=== PATIENT | male | born 1980 | race Asian ===

== ENCOUNTER 2021-03-24 02:26 | Emergency (ER) | payer BC, OTHER ==
[~2021-03-24] VITALS: Ht 185.4 cm; Wt 90.7 kg
[2021-03-24] MEDS ORDERED: LIDOCAINE 1% HCL (LOCAL ANESTH.) INJ 20ML MDV ONE (11:18)
[2021-03-24 11:45] VITALS: BP 139/75
[2021-03-24] MEDS ORDERED: TETANUS-DIPTH-ACEL PERTUSSIS 0.5ML SYR Tdap IM ONE (11:45)
== END 2021-03-24 13:10 | disposition home or self-care (01) ==
LOC: ER 02:29
DX: S61.012A Laceration without foreign body of left thumb without damage to nail, initial encounter (principal); W22.8XXA Striking against or struck by other objects, initial encounter; Y93.89 Activity, other specified; Y92.89 Other specified places as the place of occurrence of the external cause; Y99.8 Other external cause status
CPT/HCPCS: 12001; 12002; 73120; 90471; 90715; J2001